=== PATIENT | male | born 1995 | race Caucasian/White ===

== ENCOUNTER 2018-01-12 17:48 | Inpatient (IN) ==
--- NOTE | 2018-01-12 18:09 | Emergency Department Note ---
Disposition Clinical Impression: Suicidal ideation, Homicidal ideation Disposition: Admitted As Inpatient Condition: Fair Time of Disposition: 21:17 Psych HPI - General Chief Complaint: ED Psychiatric Symptoms Stated Complaint: SI Time Seen by Provider: 01/12/18 17:56 Source: patient, family Nursing Notes Reviewed: Yes Vital Signs Reviewed: Yes - History of Present Illness HPI Narrative: 22-year-old male presents from home with girlfriend for evaluation of suicidal or homicidal ideation. Patient does have a history of depression currently on Abilify, Lamictal, hydroxyzine, Celexa. He sees Betty Roman, therapist at [facility]. She also sees a psychiatrist at [facility]. He notes that, over the past 4 weeks, despite seeing his therapist and been compliant with his medications he has had progressively worsening thoughts of suicidal ideation and homicidal ideation. Suicidal ideation is specific with plan to hang himself. He has not because he does not want hurt his parents. Homicidal ideation is nonspecific he just has thoughts of hurting others, no one in particular, and is afraid he may act on these thoughts. ROS: Positive: As above Negative: Fever, chills, nausea, vomiting, chest pains, palpitations, ingestions, self injury, diarrhea, constipation - Related Data Home Medications Medication Instructions Recorded Confirmed Abilify 07/16/16 HydrOXYzine 07/16/16 Allergies Allergy/AdvReac Type Severity Reaction Status Date / Time No Known Allergies Allergy Verified 07/16/16 12:01 All systems ED: reviewed and negative except as stated. Review of Systems: As Per HPI Past Medical History - Past Medical History Medical history: Reports: asthma, seizures, other Psychiatric history: Reports: anxiety, bipolar, depression, panic disorder - Social History Smoking Status: Former smoker Smokeless Tobacco Status: No Alcohol use: Reports: none Drug use: Reports: none Physical Exam Vital Signs Reviewed General: Patient is alert, oriented, and in no acute distress. Head: atraumatic, normocephalic Eye: normal appearance, PERRL, EOMI, no scleral icterus, no conjunctival injection ENT: mucous membranes moist, normal external ear exam Neck: normal inspection, trachea midline, full ROM Chest: normal inspection, symmetric chest rise Respiratory: Good respiratory effort. Bilateral breath sounds are clear without wheezing, crackles, or rhonchi. Cardiovascular: Regular rate and rhythm. No clicks, rubs, gallops, or murmors. Normal heart sounds. Abdomen: Bowel sounds present normoactive x-4 quadrants. Abdomen is soft, nondistended, and nontender. No guarding or rebound. No organomegaly noted. Musculoskeletal: Spontaneously moving all extremities. Skin: warm, dry, intact. Neuro: Alert and oriented x4. Sensation light touch intact. Psych: Patient's affect is appropriate for situation. - General Limitations: no limitations General appearance: alert, in no apparent distress Course Course Narrative: Patient is HIV and SI. Will perform medical workup and request mental health evaluation. He does have insight, has been compliant with his treatment, and appears generally concerned that he may hurt himself or others. 19:05 Patient is medically cleared for mental health evaluation. [facility] called by nursing. 21:16 Patient accepted as inpatient to [facility]. Vital Signs Temperature 98.2 F 01/12/18 17:50 Pulse Rate 90 01/12/18 17:50 Respiratory Rate 18 01/12/18 17:50 Blood Pressure 145/89 01/12/18 17:50 O2 Sat by Pulse Oximetry 97 01/12/18 17:50 Temperature 98.2 F 01/12/18 18:05 Pulse Rate 90 01/12/18 18:05 Respiratory Rate 18 01/12/18 18:05 Blood Pressure 145/89 01/12/18 18:05 O2 Sat by Pulse Oximetry 97 01/12/18 18:05 Oxygen Delivery Oxygen Delivery Room Air Psych - Lab Data Result diagrams: 01/12/18 18:14 01/12/18 18:14 Lab Results 01/12/18 01/12/18 01/12/18 Range/Units 18:14 18:14 18:25 WBC 9.0 (4.3-11.1) K/mcL RBC 5.48 (4.19-5.50) M/mcL Hgb 16.6 (12.9-16.9) g/dL Hct 48.0 (37.5-50.1) % MCV 87.6 (83.0-100.0) fL MCH 30.3 (28.0-33.3) pg MCHC 34.6 (31.6-35.5) g/dL RDW 12.4 (11.5-14.5) % Plt Count 265 (140-400) K/mcL MPV 9.7 (9.4-12.4) fL Immature Gran % 0.2 (0-4) % Seg Neutrophils % 64.8 % Lymphocytes % 27.7 % Monocytes % 4.7 % Eosinophils % 2.3 % Basophils % 0.3 % Neutrophils # 5.8 (1.6-8.9) K/mcL Lymphocytes # 2.5 (0.6-4.6) K/mcL Monocytes # 0.4 (0.0-1.3) K/mcL Eosinophils # 0.2 (0.0-0.6) K/mcL Basophils # 0.0 (0.0-0.2) K/mcL Sodium 140 (136-145) mEq/L Potassium 3.9 (3.5-5.1) mEq/L Chloride 108 H (98-107) mEq/L Carbon Dioxide 24 (23-29) mEq/L BUN 10 (6-20) mg/dL Creatinine 1.09 (0.70-1.30) mg/dL Est GFR ( Amer) > 60 (> 60) Est GFR (Non-Af Amer) > 60 (> 60) BUN/Creatinine Ratio 9 (6-26) Glucose 87 (70-105) mg/dL Calculated Osmolality 288 (280-300) Calcium 9.5 (8.6-10.3) mg/dL Urine Color Yellow (Yellow) Urine Clarity Clear (Clear) Urine pH 7.0 (5.0-8.0) pH Units Ur Specific [place] 1.017 (1.010-1.025) Urine Protein Trace (Neg-Trace) mg/dL Urine Glucose (UA) Normal (Normal) mg/dL Urine Ketones Trace H (Negative) mg/dL Urine Blood Negative (Negative) Urine Nitrite Negative (Negative) Urine Bilirubin Negative (Negative) Urine Urobilinogen Normal (Normal) mg/dL Ur Leukocyte Esterase Negative (Negative) Urine Microscopic RBC 5-15 H (0-3) per hpf Urine Microscopic WBC 0-3 (0-3) per hpf Ur Squamous Epith Cells Few (None-Few) per lpf Urine Bacteria None Seen (None-Few) per hpf Hyaline Casts None Seen (None-Few) per lpf Salicylates < 2.5 L (15.0-30.0) mg/dL Urine Opiates Screen (Nphppy=044) ng/mL Acetaminophen < 10 L (10-20) mcg/mL Ur Barbiturates Screen (Cvuszb=655) ng/mL Ur Phencyclidine Scrn (Cutoff=25) ng/mL Ur Amphetamines Screen (Uffssa=6925) ng/mL U Benzodiazepines Scrn (Vxqoeg=588) ng/mL Urine Cocaine Screen (Cutoff= 300) ng/mL U Marijuana (THC) Screen (Cutoff = 50) ng/mL Ur Drug Screen Interp Ethyl Alcohol < 10 (Less than 10) mg/dL 01/12/18 Range/Units 18:25 WBC (4.3-11.1) K/mcL RBC (4.19-5.50) M/mcL Hgb (12.9-16.9) g/dL Hct (37.5-50.1) % MCV (83.0-100.0) fL MCH (28.0-33.3) pg MCHC (31.6-35.5) g/dL RDW (11.5-14.5) % Plt Count (140-400) K/mcL MPV (9.4-12.4) fL Immature Gran % (0-4) % Seg Neutrophils % % Lymphocytes % % Monocytes % % Eosinophils % % Basophils % % Neutrophils # (1.6-8.9) K/mcL Lymphocytes # (0.6-4.6) K/mcL Monocytes # (0.0-1.3) K/mcL Eosinophils # (0.0-0.6) K/mcL Basophils # (0.0-0.2) K/mcL Sodium (136-145) mEq/L Potassium (3.5-5.1) mEq/L Chloride (98-107) mEq/L Carbon Dioxide (23-29) mEq/L BUN (6-20) mg/dL Creatinine (0.70-1.30) mg/dL Est GFR ( Amer) (> 60) Est GFR (Non-Af Amer) (> 60) BUN/Creatinine Ratio (6-26) Glucose (70-105) mg/dL Calculated Osmolality (280-300) Calcium (8.6-10.3) mg/dL Urine Color (Yellow) Urine Clarity (Clear) Urine pH (5.0-8.0) pH Units Ur Specific [place] (1.010-1.025) Urine Protein (Neg-Trace) mg/dL Urine Glucose (UA) (Normal) mg/dL Urine Ketones (Negative) mg/dL Urine Blood (Negative) Urine Nitrite (Negative) Urine Bilirubin (Negative) Urine Urobilinogen (Normal) mg/dL Ur Leukocyte Esterase (Negative) Urine Microscopic RBC (0-3) per hpf Urine Microscopic WBC (0-3) per hpf Ur Squamous Epith Cells (None-Few) per lpf Urine Bacteria (None-Few) per hpf Hyaline Casts (None-Few) per lpf Salicylates (15.0-30.0) mg/dL Urine Opiates Screen Negative (Rdrpnc=475) ng/mL Acetaminophen (10-20) mcg/mL Ur Barbiturates Screen Negative (Jkcnzx=831) ng/mL Ur Phencyclidine Scrn Negative (Cutoff=25) ng/mL Ur Amphetamines Screen Negative (Yfgest=7493) ng/mL U Benzodiazepines Scrn Negative (Xmjmwr=998) ng/mL Urine Cocaine Screen Negative (Cutoff= 300) ng/mL U Marijuana (THC) Screen Negative (Cutoff = 50) ng/mL Ur Drug Screen Interp See Below Ethyl Alcohol (Less than 10) mg/dL Psychiatric Medical Clearance - Medical Clearance Checklist Medical History: No Social History Section defined Current Vitals: Last Vital Signs Temp 98.2 F 01/12/18 18:05 Pulse 90 01/12/18 18:05 Resp 18 01/12/18 18:05 BP 145/89 01/12/18 18:05 Pulse Ox 97 01/12/18 18:05 Psychiatric Lab Panel: Drug Levels and Toxicity 01/12/18 01/12/18 18:14 18:25 Urine Opiates Screen Negative Acetaminophen < 10 L Ur Barbiturates Screen Negative Ur Phencyclidine Scrn Negative Ur Amphetamines Screen Negative U Benzodiazepines Scrn Negative Urine Cocaine Screen Negative U Marijuana (THC) Screen Negative Ethyl Alcohol < 10 Abnormal Labs: Abnormal lab results Chloride 108 mEq/L (98-107) H 01/12/18 18:14 Urine Ketones Trace mg/dL (Negative) H 01/12/18 18:25 Urine Microscopic RBC 5-15 per hpf (0-3) H 01/12/18 18:25 Salicylates < 2.5 mg/dL (15.0-30.0) L 01/12/18 18:14 Acetaminophen < 10 mcg/mL (10-20) L 01/12/18 18:14 Statement of Medical Clearance: I have evaluated the patient, reviewed diagnostic information, and certify that the patient's medical condition is sufficiently stable that transfer to the psychiatric unit does not pose a significant risk of deterioration. Attestation Statement - Attestation Attestation: I examined this patient and my medical decision-making was reviewed with the Resident Physician. I agree with the documented findings, disposition and treatment plan as described except to the extent set forth below. Suicidal ideations. He does have a plan. He will be admitted for psychiatric services. He is medical cleared at this time.
[2018-01-12 18:34] LABS: Basophils % 0.3 %; Eosinophils # 0.2 K/mcL (0.0-0.6); Eosinophils % 2.3 %; Hemoglobin 16.6 g/dL (12.9-16.9); Immature Granulocytes % 0.2 % (0-4); Lymphocytes # 2.5 K/mcL (0.6-4.6); Lymphocytes % 27.7 %; Mean Corpuscular HGB Conc 34.6 g/dL (31.6-35.5); Mean Corpuscular Hemoglobin 30.3 pg (28.0-33.3); Mean Corpuscular Volume 87.6 fL (83.0-100.0); Mean Platelet Volume 9.7 fL (9.4-12.4); Monocytes # 0.4 K/mcL (0.0-1.3); Monocytes % 4.7 %; Neutrophils # 5.8 K/mcL (1.6-8.9); Platelet Count 265 K/mcL (140-400); Red Blood Count 5.48 M/mcL (4.19-5.50); Red Cell Distribution Width 12.4 % (11.5-14.5); Segmented Neutrophils % 64.8 %
[2018-01-12 18:54] LABS: Acetaminophen < 10 mcg/mL (10-20); BUN/Creatinine Ratio 9 (6-26); Blood Urea Nitrogen 10 mg/dL (6-20); Calcium 9.5 mg/dL (8.6-10.3); Carbon Dioxide 24 mEq/L (23-29); Chloride 108 mEq/L (98-107); Ethanol < 10 mg/dL (Less than 10); Glucose 87 mg/dL (70-105); Osmolality,Calculated 288 (280-300); Potassium 3.9 mEq/L (3.5-5.1); Salicylate < 2.5 mg/dL (15.0-30.0); Sodium 140 mEq/L (136-145); eGFR For Non-African Americans > 60 (> 60)
[2018-01-12 18:55] LABS: Bilirubin,Urine Negative (Negative); Blood,Urine Negative (Negative); Clarity,Urine Clear (Clear); Color,Urine Yellow (Yellow); Glucose,Urine (UA) Normal (Normal); Ketones,Urine Trace mg/dL (Negative); Leukocyte Esterase,Urine Negative (Negative); Nitrite,Urine Negative (Negative); Protein,Urine Trace mg/dL (Neg-Trace); Specific Gravity,Urine 1.017 (1.010-1.025); Urobilinogen,Urine Normal (Normal)
[2018-01-12 18:57] LABS: Bacteria,Urine None Seen per hpf (None-Few); Hyaline Casts,Urine None Seen per lpf (None-Few); Squamous Epithelial Cell,Urine Few per lpf (None-Few); WBC,Urine 0-3 per hpf (0-3)
[2018-01-12 19:04] LABS: Amphetamine Screen,Urine Negative ng/mL (Cutoff=1000); Barbiturate Screen,Urine Negative ng/mL (Cutoff=200); Benzodiazepines Screen,Urine Negative ng/mL (Cutoff=200); Cannabinoid Screen,Urine Negative ng/mL (Cutoff = 50); Cocaine Screen,Urine Negative ng/mL (Cutoff= 300); Opiate Screen,Urine Negative ng/mL (Cutoff=300); Phencyclidine Screen,Urine Negative ng/mL (Cutoff=25)
[2018-01-12] MEDS ORDERED: MOM Conc 10 ML UD.LIQ PO PRN (21:17)
[2018-01-12] MEDS ORDERED: hydrOXYzine pamoate 25 MG CAPSULE PO PRN (21:17)
[2018-01-12] MEDS ORDERED: Haloperidol Lactate 5 MG/ML VIAL IM PRN (21:17)
[2018-01-12] MEDS ORDERED: *HR* LORazepam 1 MG TABLET PO PRN (21:17)
[2018-01-12] MEDS ORDERED: Mag Hydrox/Al Hydrox/Simeth 30 ML UDC PO PRN (21:17)
[2018-01-12] MEDS ORDERED: traZODone 50 MG TABLET PO PRN (21:17)
[2018-01-12] MEDS ORDERED: *HR* LORazepam 2 MG/ML VIAL IM PRN (21:17)
[2018-01-12] MEDS ORDERED: Acetaminophen 325 MG TABLET PO PRN (21:17)
--- NOTE | 2018-01-13 13:49 | Psychiatry History & Physical ---
Date of Encounter: 01/13/18 Time of Encounter: 13:30 History of Present Illness Patient Stated Chief Complaint: "Just lots of suicidal thoughts of hanging myself. Medicare Admission Attestation: For traditional Medicare patients the provided hospital inpatient services are reasonable and necessary and in the case of services not specified as inpatient-only under 42 CFR 419.22 (n), that they are appropriately provided as inpatient services in accordance 42 CFR 412.3. For Critical Access Hospital the patient may reasonably be expected to be discharged or transferred to a hospital within 96 hours after admission to the Critical Access Hospital. Admitted From: Home Plans for Post Hospital Care: Home History of Present Illness: Mr. Mayfield is a 22 year old male who was seen in the ED reporting he has been having severe thoughts of suicide and hanging himself. He just does not care what happens to himself any longer. He states that he has no energy to do anything, he has had increasing feelings of being hopeless and helpless, found himself isolating, had no energy or desire to do anything he used to like to do. He was sleeping 12 hours + a day, and had problems concentrating, and feels like a burden to his family and his girlfriend. He has a tremendous amount of guilt and shame. He states his medications were recently increased with his Abilify increased from 15 mg to 20 mg and he was started on Lamictal. He believes his depression and energy level changed shortly after starting Lamictal. He has started having sexual dysfunction after starting the Lamictal. He feels worthless. He denied going days without need for sleep, denies any impulsivity (except at times impulse buying). No financial issues. He denies any auditory or visual hallucinations. Still has passive thoughts of suicide, but no active plan. Past Med Surg Social Fam HX - Past Medical History Source: patient Medical history: asthma, seizures (Suki has had 4 in his lifetime. Last one in July 2017. He does not take medication for siezures), other - Past Psychiatric History Psychiatric history: Reports: bipolar Family psychiatric history: Yes (Father/Bipolar, Mother/Anxiety, Sister/Depression) Family History of Suicide: None - Past Surgical History Surgical History: no surgical history - Social History Smoking Status: Former smoker Smokeless Tobacco Status: No Alcohol use: none Drug use: none Occupational status: employed Current living situation: Home - Independent Activity Level: Independent ambulation Recent Out of Country Travel Within the Last 8 Weeks: No Exposure or Possible Exposure to Illness During Travel: No Medications & Allergies Aripiprazole [Abilify] 20 mg PO DAILY 01/13/18 [History] Citalopram Hydrobromide [Citalopram HBr] 40 mg PO DAILY 01/13/18 [History] hydrOXYzine HCl [Hydroxyzine HCl] 25 mg PO BID PRN 01/13/18 [History] lamoTRIgine [Lamictal] 25 mg PO BID 01/13/18 [History] Allergy/AdvReac Type Severity Reaction Status Date / Time No Known Allergies Allergy Verified 07/16/16 12:01 Review of Systems Constitutional: Denies: fever, chills, weakness, weight change Eyes: Denies: eye pain, vision change Ears, Nose, Throat: Denies: ear pain, throat pain, dental pain, hearing loss, congestion Respiratory: Denies: cough, dyspnea, wheezes Gastrointestinal: Denies: abdominal pain, nausea, vomiting, diarrhea, constipation Genitourinary male: Denies: urgency, dysuria, frequency, genital lesions Musculoskeletal: Denies: joint swelling, joint pain Integumentary: Denies: rash, lesions, pruritus Neurological: Denies: headache, weakness, numbness, memory loss Endocrine: Denies: fatigue, heat or cold intolerance Hematologic/Lymphatic: Denies: easy bruising, lymphadenopathy Allergic/Immunologic: Denies: urticaria, itchy eyes Exam - HEENT Head exam IM: Present: atraumatic Eye exam IM: Present: EOMI, PERRL ENT exam IM: Present: normal exam - Neurological Neurological exam: Present: alert - Constitutional Vitals: Temp Pulse Resp BP Pulse Ox 97.9 F 84 18 126/77 96 01/13/18 09:00 01/13/18 09:00 01/13/18 09:00 01/13/18 09:00 01/13/18 09:00 General appearance: age & developmentally appropriate, well-groomed, well- nourished - Musculoskeletal Gait: normal Strength & Tone: normal for patient - Psychiatric Patient Orientation: Yes Person, Yes Time, Yes Place Level of alertness: Alert Behavior: anxious Psychomotor activity: Normal Eye Contact: Maintains Eye Contact Mood Description: Depressed, Anxious Affect description: congruent with mood Speech Volume: Normal Speech pattern: normal rate, normal rhythm, normal tone Language & Vocabulary: consistent with education Thought Process: Linear Thought Content: Yes Suicidal ideation Attention Span Ability: Capable of Focused Attention Memory Description: Grossly Intact Patient Reliability: Reliable Historian Fund of knowledge: Yes average Intelligence Estimate: Average Judgment: Good Insight: Partial Results - Drug Levels and Toxicology Drug Levels and Toxicology: Drug Levels and Toxicity 01/12/18 01/12/18 18:14 18:25 Urine Opiates Screen Negative Acetaminophen < 10 L Ur Barbiturates Screen Negative Ur Phencyclidine Scrn Negative Ur Amphetamines Screen Negative U Benzodiazepines Scrn Negative Urine Cocaine Screen Negative U Marijuana (THC) Screen Negative Ethyl Alcohol < 10 - Labs Labs: Laboratory Last Values WBC 9.0 K/mcL (4.3-11.1) 01/12/18 18:14 RBC 5.48 M/mcL (4.19-5.50) 01/12/18 18:14 Hgb 16.6 g/dL (12.9-16.9) 01/12/18 18:14 Hct 48.0 % (37.5-50.1) 01/12/18 18:14 MCV 87.6 fL (83.0-100.0) 01/12/18 18:14 MCH 30.3 pg (28.0-33.3) 01/12/18 18:14 MCHC 34.6 g/dL (31.6-35.5) 01/12/18 18:14 RDW 12.4 % (11.5-14.5) 01/12/18 18:14 Plt Count 265 K/mcL (140-400) 01/12/18 18:14 MPV 9.7 fL (9.4-12.4) 01/12/18 18:14 Immature Gran % 0.2 % (0-4) 01/12/18 18:14 Seg Neutrophils % 64.8 % 01/12/18 18:14 Lymphocytes % 27.7 % 01/12/18 18:14 Monocytes % 4.7 % 01/12/18 18:14 Eosinophils % 2.3 % 01/12/18 18:14 Basophils % 0.3 % 01/12/18 18:14 Neutrophils # 5.8 K/mcL (1.6-8.9) 01/12/18 18:14 Lymphocytes # 2.5 K/mcL (0.6-4.6) 01/12/18 18:14 Monocytes # 0.4 K/mcL (0.0-1.3) 01/12/18 18:14 Eosinophils # 0.2 K/mcL (0.0-0.6) 01/12/18 18:14 Basophils # 0.0 K/mcL (0.0-0.2) 01/12/18 18:14 Sodium 140 mEq/L (136-145) 01/12/18 18:14 Potassium 3.9 mEq/L (3.5-5.1) 01/12/18 18:14 Chloride 108 mEq/L (98-107) H 01/12/18 18:14 Carbon Dioxide 24 mEq/L (23-29) 01/12/18 18:14 BUN 10 mg/dL (6-20) 01/12/18 18:14 Creatinine 1.09 mg/dL (0.70-1.30) 01/12/18 18:14 Est GFR ( Amer) > 60 (> 60) 01/12/18 18:14 Est GFR (Non-Af Amer) > 60 (> 60) 01/12/18 18:14 BUN/Creatinine Ratio 9 (6-26) 01/12/18 18:14 Glucose 87 mg/dL (70-105) 01/12/18 18:14 Calculated Osmolality 288 (280-300) 01/12/18 18:14 Calcium 9.5 mg/dL (8.6-10.3) 01/12/18 18:14 Urine Color Yellow (Yellow) 01/12/18 18:25 Urine Clarity Clear (Clear) 01/12/18 18:25 Urine pH 7.0 pH Units (5.0-8.0) 01/12/18 18:25 Ur Specific [place] 1.017 (1.010-1.025) 01/12/18 18: Urine Protein Trace mg/dL (Neg-Trace) 01/12/18 18: Urine Glucose (UA) Normal mg/dL (Normal) 01/12/18 18:25 Urine Ketones Trace mg/dL (Negative) H 01/12/18 18:25 Urine Blood Negative (Negative) 01/12/18 18: Urine Nitrite Negative (Negative) 01/12/18 18:25 Urine Bilirubin Negative (Negative) 01/12/18 18:25 Urine Urobilinogen Normal mg/dL (Normal) 01/12/18 18:25 Ur Leukocyte Esterase Negative (Negative) 01/12/18 18:25 Urine Microscopic RBC 5-15 per hpf (0-3) H 01/12/18 18:25 Urine Microscopic WBC 0-3 per hpf (0-3) 01/12/18 18:25 Ur Squamous Epith Cells Few per lpf (None-Few) 01/12/18 18:25 Urine Bacteria None Seen per hpf (None-Few) 01/12/18 18:25 Hyaline Casts None Seen per lpf (None-Few) 01/12/18 18:25 Salicylates < 2.5 mg/dL (15.0-30.0) L 01/12/18 18:14 Urine Opiates Screen Negative ng/mL (Frnieo=155) 01/12/18 18:25 Acetaminophen < 10 mcg/mL (10-20) L 01/12/18 18:14 Ur Barbiturates Screen Negative ng/mL (Naqpds=530) 01/12/18 18:25 Ur Phencyclidine Scrn Negative ng/mL (Cutoff=25) 01/12/18 18:25 Ur Amphetamines Screen Negative ng/mL (Pziyot=2043) 01/12/18 18:25 U Benzodiazepines Scrn Negative ng/mL (Vkogaw=802) 01/12/18 18:25 Urine Cocaine Screen Negative ng/mL (Cutoff= 300) 01/12/18 18:25 U Marijuana (THC) Screen Negative ng/mL (Cutoff = 50) 01/12/18 18:25 Ur Drug Screen Interp See Below 01/12/18 18:25 Ethyl Alcohol < 10 mg/dL (Less than 10) 01/12/18 18:14 Assessment and Plan (1) Bipolar 1 disorder, depressed Current visit: Yes Status: Acute Plan: Admit inpatient for safety and stabilization, Close observation, Suicide Precautions per unit protocol, Encourage participation in unit milieu, Group Therapy, Monitor sleep, Monitor appetite Risks, benefits, side effects, alternatives discussed w/pt: Yes (Patient already taking these medications) Patient agreeable to treatment: Yes (Discontinue Lamictal/side effects. Continue Celexa and Abilify.) Plans for Post Hospital Care: Home Estimated Length of Stay (Days): 5
[2018-01-13] MEDS: ARIPiprazole 10 MG TABLET PO SCH (14:15)
[2018-01-14] MEDS: ARIPiprazole 10 MG TABLET PO SCH (09:10)
--- NOTE | 2018-01-14 16:04 | Psychiatry Progress Note ---
Date of Encounter: 01/14/18 Time of Encounter: 15:45 Subjective Interval history: "I feel a lot better now than I felt on Saturday." He states he feels like he has more energy. He has been more social with people on the unit and feels much better being off Lamictal. He states that he slept 9 hours last night "real good". He denies any suicidal-homicidal ideation. He denies any auditory/visual hallucinations. We discussed how the fatigue side effect of the Lamictal, slowing him down, may have contributed to his thoughts of being depressed and hopeless. He says he will continue to monitor that with his outpatient doctor. He is hopeful of being discharged soon. We will monitor his behavior for the rest the day and see how he sleeps tonight, to make sure they are lasting effects and lasting stability with the pending discharge tomorrow. Results - Vital Signs Vital Signs: Temp Pulse Resp BP Pulse Ox 97.9 F 87 18 128/82 98 01/14/18 09:00 01/14/18 09:00 01/14/18 09:00 01/14/18 09:00 01/14/18 09:00 Assessment and Plan (1) Bipolar 1 disorder, depressed Current visit: Yes Status: Acute Plan: Continue hospitalization (Monitor improvments to make sure they are continued and lasting; that he sleeps well tonight and has a good visit with family tonight), Close observation, Suicide Precautions per unit protocol, Monitor sleep, Monitor appetite Risks, benefits, side effects, alternatives discussed w/pt: Yes (Patient already taking these medications) Patient agreeable to treatment: Yes (Discontinue Lamictal/side effects. Continue Celexa and Abilify.) Consult Discharge Plan - Plan Referrals: [facility] [Outside] - 01/22/18 9:00 am (The above appointment is with Mikal Gee for outpatient psychiatric assessment and medication management services. You will also see Betty Roman for outpatient mental health counseling services on 01/29/2018 at 11:00am. Please arrive 10 minutes early to all appointments to complete the check-in process. Please bring your insurance card (or HCAP award letter) and photo ID. If you are unable to keep any scheduled appointment, 24 hour business notice of cancellation is expected. The above appointment(s) reflects first availability. You may contact the office regularly to check for cancellations that may allow you to be seen sooner. ) Psychiatry Exam - Constitutional Vitals: Temp Pulse Resp BP Pulse Ox 97.9 F 87 18 128/82 98 01/14/18 09:00 01/14/18 09:00 01/14/18 09:00 01/14/18 09:00 01/14/18 09:00 General appearance: age & developmentally appropriate - Musculoskeletal Gait: normal Station: relaxed Strength & Tone: normal for patient - Psychiatric Patient Orientation: Yes Person, Yes Time, Yes Place, Yes Circumstance Level of alertness: Alert Behavior: nervous (mildly) Psychomotor activity: Normal Eye Contact: Maintains Eye Contact Mood Description: Depressed (less than yesterday), Anxious (mildy) Patient description of mood: Better Affect description: congruent with mood Speech Volume: Normal Speech pattern: normal rate, normal rhythm, normal tone Language & Vocabulary: consistent with education Thought Process: Intact, Logical, Linear Thought Content: Yes Intact Attention Span Ability: Capable of Focused Attention Memory Description: Grossly Intact Patient Reliability: Reliable Historian Fund of knowledge: Yes average Intelligence Estimate: Average Judgment: Good Insight: Full
[2018-01-15] MEDS: ARIPiprazole 10 MG TABLET PO SCH (09:29)
--- NOTE | 2018-01-15 09:39 | Discharge Summary ---
Date of Encounter: 01/15/18 Time of Encounter: 09:30 Diagnosis - Discharge Diagnosis (1) Bipolar 1 disorder, depressed Status: Acute Medications - Discharge Medications Aripiprazole [Abilify] 20 mg PO DAILY 01/13/18 [History] Citalopram Hydrobromide [Citalopram HBr] 40 mg PO DAILY 01/13/18 [History] hydrOXYzine HCl [Hydroxyzine HCl] 25 mg PO BID PRN 01/13/18 [History] lamoTRIgine [Lamictal] 25 mg PO BID 01/13/18 [History] Allergy/AdvReac Type Severity Reaction Status Date / Time No Known Allergies Allergy Verified 07/16/16 12:01 Results Procedures and tests throughout hospitalization: Completed Lab Orders Category Date Time Status Acetaminophen Stat Lab 01/12/18 18:14 Completed Basic Metabolic Panel Stat Lab 01/12/18 18:14 Completed Complete Blood Count [HEME] Stat Lab 01/12/18 18:14 Completed Drug Screen, Urine [UCHEM] Stat Lab 01/12/18 18:25 Completed Ethanol Stat Lab 01/12/18 18:14 Completed Salicylate Stat Lab 01/12/18 18:14 Completed Urinalysis reflex Microscopic [URIN] Stat Lab 01/12/18 18:25 Completed Provider Date of admission: 01/12/18 21:13 Primary care physician: PCP NONE Psychiatry Exam - Constitutional Vitals: Temp Pulse Resp BP Pulse Ox 97.5 F L 82 18 147/84 96 01/14/18 20:42 01/14/18 20:42 01/14/18 20:42 01/14/18 20:42 01/14/18 20:42 General appearance: age & developmentally appropriate - Musculoskeletal Gait: normal Station: relaxed Strength & Tone: normal for patient - Psychiatric Patient Orientation: Yes Person, Yes Time, Yes Place, Yes Circumstance Level of alertness: Alert Behavior: calm Psychomotor activity: Normal Eye Contact: Maintains Eye Contact Mood Description: Euthymic/stable Affect description: congruent with mood Speech Volume: Normal Speech pattern: normal rate, normal rhythm, normal tone Language & Vocabulary: consistent with education Thought Process: Intact, Logical, Linear, Goal Oriented Thought Content: Yes Intact Attention Span Ability: Capable of Focused Attention Memory Description: Grossly Intact Patient Reliability: Reliable Historian Fund of knowledge: Yes abstraction ability Intelligence Estimate: Average Judgment: Good Insight: Full Hospital Course Hospital course: Mr. Mayfield is a 22 year old male who was admitted 3 days ago after having increasing thoughts of suicide with plans to kill himself. Patient stated that his medications at been changed by his provider outpatient approximately 3 weeks prior. He states that he is feeling much more depressed and was having suicidal thoughts, increasingly over the last couple days prior to admission. 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 Upon interview and further discussion it appeared that the depressed feelings increased with the addition of Lamictal to his medications. Decision was made to hold the Lamictal to see if his energy level and mood improved. He remained on close observations. Patient reported after having Lamictal held, that he felt better. He was interacting more with people and was not isolating as much. He stated he was not feeling depressed, no longer feeling suicidal. He was engaging was staff much better and was observed smiling more and interacting with his family when they came on family visit. Patient states that his sleep is fine, getting 9 hours/night prior to today's discharge. He denies any other side effects of the medication. He states that he is future oriented, that he wants to be home with his family for Thanksgiving and that he is no longer feeling suicidal. He is thankful that it was easy to figure out what was causing him to feel suicidal and depressed. Report will be given to his outpatient primary provider and he will explain of the outpatient provider when he sees him in a week. Patient is linear and logical. His thoughts are future oriented. His affect is brighter, his mood is stable. He will discontinue his use of Lamictal once he gets home and dispose of the medication he has left at home. He is being discharged today. Time spent discussing smoking cessation with patient: 3 to 10 minutes Does patient wish to continue nicotine replacement upon disc: No (Non smoker) - Time Spent with Patient Total time spent providing and/or coordinating discharge services: 20 min Less than 30 minutes Assessment and Plan - Patient/Caregiver Discharge Instructions Activity: resume usual activities as tolerated Diet: regular diet - Follow up Plan Follow up with: [facility] [Outside] - 01/22/18 9:00 am (The above appointment is with Mikal Gee for outpatient psychiatric assessment and medication management services. You will also see Betty Roman for outpatient mental health counseling services on 01/29/2018 at 11:00am. Please arrive 10 minutes early to all appointments to complete the check-in process. Please bring your insurance card (or [facility]) and photo ID. If you are unable to keep any scheduled appointment, 24 hour business notice of cancellation is expected. The above appointment(s) reflects first availability. You may contact the office regularly to check for cancellations that may allow you to be seen sooner. ) Functional capacity at discharge: independent ambulation Overall status at discharge: Stable Disposition: Home, Self-Care Quality - Multiple Antipsychotics Patient discharged on 2 or more antipsychotic medications: No Procedures - Procedures Procedures: Medication Management, Crisis Stabilization, Supportive Therapy, Psychoeducational Therapy
[2018-01-15 10:19] VITALS: BP 139/84
== END 2018-01-15 11:00 | disposition home or self-care (01) | DRG 885 ==
LOC: EMEROOARM 17:48 → SUATTDRO 21:13 → 1ANU 21:13
PROVIDERS: ADMIT Psychiatry & Neurology Forensic Psychiatry; ATTEND Psychiatry & Neurology Psychiatry